=== PATIENT | male | born 2000 | race Caucasian/White ===

== ENCOUNTER 2021-06-09 14:00 | Emergency (ER) | payer OTHER, SELFPAY ==
[2021-06-09 14:08] VITALS: BP 141/92; PULSE 100; RESP 18; TEMP 36.9; O2SAT 98; BMI 34.2
--- NOTE | 2021-06-09 14:46 | ED.GENADULT ---
HPI - General Adult General Chief complaint: Upper Respiratory Symptoms Stated complaint: flu like symptoms Time Seen by Provider: 06/09/21 14:45 Source: patient Limitations: no limitations History of Present Illness HPI narrative: Patient presents to the ER with congestion slight sore throat. Patient states he is allergic to cats and has cats in his home. Patient denies any recent COVID-19 exposure and has not been vaccinated for COVID-19. 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 Patient has experienced some post tussis nausea vomiting after coughing. Patient denies tobacco history does admit to smoking marijuana. Symptoms mild to moderate. No history of COVID-19 in the past. Patient denies any recent travel history. Related Data Previous Rx's Medication Instructions Recorded ondansetron HCl 4 mg tablet 4 mg PO Q8H PRN #10 tab 06/09/21 (Zofran) Allergies Allergy/AdvReac Type Severity Reaction Status Date / Time No Known Allergies Allergy Unverified 05/28/20 16:50 [No Known Allergies*] Review of Systems Constitutional: Constitutional: Denies chills, Denies fatigue, Denies fever(s) and Denies headache(s) ENT: Denies headache(s), Reports nasal congestion, Reports nasal discharge and Denies neck pain Cardiovascular: Cardiovascular: Denies chest pain and Denies dyspnea Respiratory: Respiratory: Reports chest congestion, Reports cough and Denies dyspnea Gastrointestinal: Gastrointestinal: Denies diarrhea, Denies nausea and Denies vomiting Musculoskeletal: Musculoskeletal: Denies neck pain Neurologic: Denies headache(s) Endocrine: Endocrine: Denies fatigue PMFSH Past Medical History Attestation statement: The following information was validated with the patient. Social History Social History Advance Directives: No Advance Directives Information Provided: No Physical Exam Vital Signs: Vital Signs: Last Vital Signs Temp 98.4 F 06/09/21 14:08 Pulse 100 06/09/21 14:08 Resp 18 06/09/21 14:08 BP 141/92 H 06/09/21 14:08 Pulse Ox 98 06/09/21 14:08 Body Mass Index 34.2 vital signs have been reviewed as normal and appeared to be correct. Blood pressure normal. Heart rate normal. Respiration rate normal. Temperature normal. Oxygen saturation normal. Appearance: Alert. Oriented X3. No acute distress. Head: Normal external exam. Normocephalic. Atraumatic. Eyes: PERRLA. EOMI. ENT: Pharynx normal. Uvula midline. Moist mucous membranes. No evidence peritonsillar abscess. slight nasal congestion noted. Neck: Soft full range of motion, no JVD CVS: Heart regular rate and rhythm no murmurs and rubs Respiratory: Breath sounds are clear to auscultation bilaterally. No accessory muscle use noted. Abdomen: Soft nontender no rebound or guarding positive bowel sounds Back: No CVA tenderness. Full range of motion noted. Skin: Skin warm and dry. Normal skin color. Normal skin turgor. No rashes/lesions/lacerations noted. Extremities: No lower extremity edema. Extremities exhibit normal range of motion. Extremities nontender. Neuro: Oriented X 3. No motor deficit. No sensory deficit. Reflexes normal. Course Course Course Narrative: Viral URI Seasonal allergies Animal allergies COVID-19 Pharyngitis COVID-19 swab obtained negative patient notified via phone at approximately 4:14 p.m. Patient also instructed to avoid marijuana use secondary to side effects of nausea vomiting. Medical Decision Making Lab Data Labs: Lab Results 06/09/21 Range/Units 14:49 COVID-19 (AMY) Negative (Negative) COVID-19 Clin Com See Note Discharge Plan Discharge Clinical Impression: Upper respiratory infection Qualifiers: URI type: unspecified viral URI Qualified Code(s): J06.9 - Acute upper respiratory infection, unspecified Patient Disposition: Home, Self-Care Instructions: Upper Respiratory Infection (ED) Additional Instructions: Webster diet increase fluids rest Will call you with COVID-19 results Prescriptions: New ondansetron HCl [Zofran] 4 mg tablet 4 mg PO Q8H PRN (Reason: nausea and vomiting) Qty: 10 RF: 0 Interventions: ED Discharge Assessment Last Done: 06/09/21 15:00 Discharge Date/Time: 06/09/21 15:01
[2021-06-09 15:09] LABS: COVID-19 Test Negative (Negative); IDNOW Serial# 9DD0AD1C
== END 2021-06-09 15:01 | disposition home or self-care (01) ==
PROVIDERS: Physician Assistant; Emergency Provider Emergency Medicine Emergency Medical Services
DX: J06.9 Acute upper respiratory infection, unspecified (principal); Z20.822 Contact with and (suspected) exposure to COVID-19; Z79.899 Other long term (current) drug therapy
CPT/HCPCS: 36415; 87635; 99283

== ENCOUNTER 2022-08-01 12:16 | Emergency (ER) | payer OTHER, SELFPAY ==
[2022-08-01 12:23] VITALS: BP 151/95; PULSE 89; RESP 16; TEMP 36.7; O2SAT 98; BMI 33.4
--- NOTE | 2022-08-01 12:29 | ED.PSYCH ---
HPI - Psych General Chief Complaint: Psychiatric Symptoms <DO Jonah Rangel Last Filed: 08/01/22 12:32> Stated Complaint: crisis <DO Jonah Rangel Last Filed: 08/01/22 12:32> Time Seen by Provider: 08/01/22 12:43 <DO Jonah Rangel Last Filed: 08/01/22 12:32> Source: patient <Tayler Pearson NP - Last Filed: 08/01/22 16:00> Mode of arrival: ambulatory <Tayler Pearson NP - Last Filed: 08/01/22 16:00> Limitations: no limitations <ODILON Scales Last Filed: 08/01/22 16:00> History of Present Illness HPI Narrative: 22-year-old male with a history of bipolar disorder not on medication for many years, not seeing therapist or psychiatrist here with complaints of mood swings and anger issues. No SI, HI, hallucinations, substance use. No physical complaints. Here looking to speak to crisis <ODILON Scales Last Filed: 08/01/22 16:00> Related Data Home Medications: Previous Rx's Medication Instructions Recorded ondansetron HCl 4 mg tablet 4 mg PO Q8H PRN nausea and 06/09/21 (Zofran) vomiting #10 tabs <DO Jonah Rangel Last Filed: 08/01/22 12:32> Allergies/Adverse Reactions: Allergies Allergy/AdvReac Type Severity Reaction Status Date / Time No Known Allergies Allergy Unverified 05/28/20 16:50 [No Known Allergies*] <DO Jonah Rangel Last Filed: 08/01/22 12:32> Review of Systems Review of Systems: Yes all other systems are reviewed and are negative <ODILON Scales Last Filed: 08/01/22 16:00> Constitutional: Constitutional: Reports no additional constitutional complaints, Denies body ache(s), Denies chills, Denies fever(s), Denies headache(s) and Denies weakness <ODILON Scales Last Filed: 08/01/22 16:00> Eyes: Eyes: Reports no additional eye complaints and Denies change in vision <Tayler Pearson NP - Last Filed: 08/01/22 16:00> ENT: Reports system reviewed and no additional complaints, except as documented, Denies dizziness, Denies headache(s), Denies nasal congestion, Denies nasal discharge and Denies neck pain <Tayler Pearsno NP - Last Filed: 08/01/22 16:00> Cardiovascular: Cardiovascular: Reports no additional cardiovascular complaints, Denies chest pain, Denies leg edema and Denies dyspnea <Tayler Pearson NP - Last Filed: 08/01/22 16:00> Respiratory: Respiratory: Reports no additional respiratory complaints, Denies cough and Denies dyspnea <Tayler Pearson NP - Last Filed: 08/01/22 16:00> Gastrointestinal: Gastrointestinal: Reports no additional gastrointestinal complaints, Denies abdominal pain, Denies diarrhea, Denies nausea and Denies vomiting <Tayler Pearson NP - Last Filed: 08/01/22 16:00> Genitourinary: Genitourinary: Denies urinary incontinence <Tayler Pearson NP - Last Filed: 08/01/22 16:00> Musculoskeletal: Musculoskeletal: Reports no additional musculoskeletal complaints, Denies back pain, Denies arthralgias, Denies joint swelling, Denies neck pain, Denies numbness and Denies tingling <Tayler Pearson NP - Last Filed: 08/01/22 16:00> Integumentary/Breasts: Skin/Breast: Reports system reviewed and no additional complaints, except as docu and Denies rash <Tayler Pearson NP - Last Filed: 08/01/22 16:00> Neurologic: Reports system reviewed and no additional complaints, except as documented, Denies Abnormal speech present, Denies dizziness, Denies headache(s), Denies numbness, Denies tingling and Denies weakness <Tayler Pearson NP - Last Filed: 08/01/22 16:00> Psychiatric: Psychiatric: Reports anxiety, Denies depression, Reports mood swings, Denies visual hallucinations, Denies hallucinations, Denies tactile hallucinations, Denies homicidal ideation and Denies suicidal ideation <Tayler Pearson NP - Last Filed: 08/01/22 16:00> [facility] Past Medical History Attestation statement: The following information was validated with the patient. <Tayler Pearson NP - Last Filed: 08/01/22 16:00> Source: old records reviewed and nursing notes reviewed <Tayler Pearson NP - Last Filed: 08/01/22 16:00> Social History Social History: Social History Alcohol intake: unknown Smoked in Last 30 Days: No Use of substances other than those prescribed or required for medical reasons: Unknown Advance Directives: No Advance Directives Information Provided: No <Kavin Santana DO - Last Filed: 08/01/22 12:32> Physical Exam Vital Signs: Vital Signs: Last Vital Signs Temp 98.1 F 08/01/22 12:23 Pulse 89 08/01/22 12:23 Resp 16 08/01/22 14:00 BP 151/95 H 08/01/22 12:23 Pulse Ox 98 08/01/22 12:23 O2 Del Method 08/01/22 12:23 BMI result Body Mass Index 33.4 <Kavin Santana DO - Last Filed: 08/01/22 12:32> Vital Signs: Last Vital Signs Temp 98.1 F 08/01/22 12:23 Pulse 89 08/01/22 12:23 Resp 16 08/01/22 14:00 BP 151/95 H 08/01/22 12:23 Pulse Ox 98 08/01/22 12:23 O2 Del Method 08/01/22 12:23 BMI result Body Mass Index 33.4 <Tayler Pearson NP - Last Filed: 08/01/22 16:00> Const: General: cooperative, healthy appearing, comfortable and no acute distress <Tayler Pearson NP - Last Filed: 08/01/22 16:00> Orientation/consciousness: patient oriented x3 <Tayler Pearson NP - Last Filed: 08/01/22 16:00> Limitations: no limitations <Tayler Pearson NP - Last Filed: 08/01/22 16:00> HEENT: Head: Yes normal to inspection <Tayler Pearson NP - Last Filed: 08/01/22 16:00> Ears: hearing grossly normal bilaterally <Tayler Pearson NP - Last Filed: 08/01/22 16:00> General nose exam: Normal external nose present <Tayler Pearson NP - Last Filed: 08/01/22 16:00> Face and sinus: Yes normal facial exam <Tayler Pearson NP - Last Filed: 08/01/22 16:00> Mouth: Normal oral and palatal mucosa present <Tayler Pearson NP - Last Filed: 08/01/22 16:00> Throat: Yes posterior oropharynx normal <Tayler Pearson NP - Last Filed: 08/01/22 16:00> Eyes: General: appearance normal, both eyes and all related structures <Tayler Pearson NP - Last Filed: 08/01/22 16:00> Pupils: Equal, round and reactive pupils present <Tayler Pearson NP - Last Filed: 08/01/22 16:00> Neck: Neck: Yes normal visual inspection <Tayler Pearson NP - Last Filed: 08/01/22 16:00> Chest: Chest palpation & inspection: normal inspection of the chest <Tayler Pearson NP - Last Filed: 08/01/22 16:00> Resp: Effort & Inspection: normal respiratory effort <Tayler Pearson NP - Last Filed: 08/01/22 16:00> Auscultation: clear to auscultation bilaterally <Tayler Pearson NP - Last Filed: 08/01/22 16:00> Cardio: Rate: regular rate <Tayler Pearson NP - Last Filed: 08/01/22 16:00> Rhythm: regular rhythm <Tayler Pearson NP - Last Filed: 08/01/22 16:00> Peripheral pulses: Peripheral pulses 2+ throughout <Tayler Pearson NP - Last Filed: 08/01/22 16:00> GI: Inspection: Yes normal to inspection <Tayler Pearson NP - Last Filed: 08/01/22 16:00> Palpation (GI): Soft to palpation and nontender <Tayler Pearson NP - Last Filed: 08/01/22 16:00> Auscultation: normal bowel sounds <Tayler Pearsno NP - Last Filed: 08/01/22 16:00> Back/Spine/Pelvis: Thoracic/Lumbar Spine: thoracic and lumbar spine normal to inspection <Tayler Pearson NP - Last Filed: 08/01/22 16:00> Skin: General skin exam: no rashes or lesions noted <Tayler Pearson NP - Last Filed: 08/01/22 16:00> Neuro: General: patient oriented x3, no focal motor deficits and normal sensation to monofilament <Tayler Pearson NP - Last Filed: 08/01/22 16:00> Cranial nerves: Yes CN's II-XII intact bilaterally and Yes Equal, round and reactive pupils present <Tayler Pearson NP - Last Filed: 08/01/22 16:00> Cognition (Neuro): normal cognition <Tayler Pearson NP - Last Filed: 08/01/22 16:00> Speech: No Abnormal speech present <Tayler Pearson NP - Last Filed: 08/01/22 16:00> Gait exam (Neuro): Normal gait present <Tayler Pearson NP - Last Filed: 08/01/22 16:00> Motor exam (neuro): 5/5 motor strength present throughout <Tayler Pearson NP - Last Filed: 08/01/22 16:00> Extrem: General: Yes normal to inspection <Tayler Pearson NP - Last Filed: 08/01/22 16:00> Course Course Course Narrative: 22 year old male with concerns and wanted to talk to someone. He denies SI or HI. NO falls injuries cough. He states he used to have a therapist but hasn't seen them for a long time. he is currently estranged from his mom. No falls injuries I will check labs he would like to talk to crisis. I will have him evaluated. in the back. Patient seen in triage labs sent. Patient got a rapid medical screening exam <Kavin Santana DO - Last Filed: 08/01/22 12:32> MDM - Psych MDM Narrative Medical decision making narrative: 22-year-old male here with complaints of mood swings and feeling angry requesting to speak to crisis. No concern for acute ingestion or trauma. Will need labs, drug screen, COVID screen. Once medically cleared will need crisis evaluation <Tayler Pearson NP - Last Filed: 08/01/22 16:00> Medical Records Attestation: I reviewed the patient's medical records. <Tayler Pearson NP - Last Filed: 08/01/22 16:00> Lab Data Attestation: I reviewed the patient's lab results. <Tayler Pearson NP - Last Filed: 08/01/22 16:00> Result diagrams: : 08/01/22 13:14 08/01/22 13:14 <Kavin Santana DO - Last Filed: 08/01/22 12:32> Labs: Lab Results 08/01/22 08/01/22 08/01/22 Range/Units 13:01 13:14 13:14 WBC 8.3 (4.8-10.8) X10*3/uL RBC 4.91 (4.60-5.80) X10*6/uL Hgb 14.6 (14.0-18.0) g/dl Hct 42.6 (42.0-52.0) % MCV 86.8 (80.0-98.0) fL MCH 29.7 (27.0-33.0) pg MCHC 34.3 (31.0-36.0) g/dl RDW 11.2 (11.0-16.0) % Plt Count 256 (160-400) X10*3/uL MPV 9.1 L (9.4-12.4) fL Immature Gran % (Auto) 0.1 (0.0-0.4) % Neut % (Auto) 59.4 (45-73) % Lymph % (Auto) 26.8 (20-40) % [place] % (Auto) 7.9 (2-11) % Eos % (Auto) 4.8 H (0-4) % Baso % (Auto) 1.0 (0-2) % Lymph # (Auto) 2.2 (1.2-4.9) X10*3/uL [place] # (Auto) 0.7 (0.1-1.2) X10*3/uL Eos # (Auto) 0.4 (0.0-0.4) X10*3/uL Baso # (Auto) 0.1 (0.0-0.2) X10*3/uL Abs Immat Gran (auto) 0.01 (0.00-0.03) X10*3/uL Absolute Neuts (auto) 4.9 (2.0-8.3) x10*3/uL Absolute Nucleated RBC 0.000 (0.0-0.012) X10*3/uL Nucleated RBC % (auto) 0.0 (0.0-0.2) /100WBC Sodium 141 (135-145) mmol/L Potassium 4.4 (3.3-5.1) mmol/L Chloride 107 (96-108) mmol/L Carbon Dioxide 27 (22-29) mmol/L Anion Gap 11 L (12-20) BUN 12 (9-16) mg/dL Creatinine 0.82 (0.5-1.4) mg/dL Estim Creat Clear Calc 161.8 Estimated GFR > 60 Random Glucose 103 (60-115) mg/dL Calcium 9.6 (8.4-10.2) mg/dL Total Bilirubin 0.7 (0.0-1.0) mg/dL Direct Bilirubin 0.3 (0.0-0.5) mg/dL AST 15 (5-37) U/L ALT 14 (0-40) U/L Alkaline Phosphatase 80 (39-117) U/L Total Protein 7.4 (6.5-8.0) g/dL Albumin 4.6 (3.5-5.0) g/dL Urine Opiates Screen (Not Detect) Urine Fentanyl Screen (Not Detect) Ur Barbiturates Screen (Not Detect) Ur Phencyclidine Scrn (Not Detect) Ur Amphetamines Screen (Not Detect) U Benzodiazepines Scrn (Not Detect) Urine Cocaine Screen (Not Detect) U Marijuana (THC) Screen (Not Detect) Ethyl Alcohol < 10 mg/dL COVID-19 (AMY) Negative (Negative) COVID-19 Clin Com See Note 08/01/22 Range/Units 13:26 WBC (4.8-10.8) X10*3/uL RBC (4.60-5.80) X10*6/uL Hgb (14.0-18.0) g/dl Hct (42.0-52.0) % MCV (80.0-98.0) fL MCH (27.0-33.0) pg MCHC (31.0-36.0) g/dl RDW (11.0-16.0) % Plt Count (160-400) X10*3/uL MPV (9.4-12.4) fL Immature Gran % (Auto) (0.0-0.4) % Neut % (Auto) (45-73) % Lymph % (Auto) (20-40) % [place] % (Auto) (2-11) % Eos % (Auto) (0-4) % Baso % (Auto) (0-2) % Lymph # (Auto) (1.2-4.9) X10*3/uL [place] # (Auto) (0.1-1.2) X10*3/uL Eos # (Auto) (0.0-0.4) X10*3/uL Baso # (Auto) (0.0-0.2) X10*3/uL Abs Immat Gran (auto) (0.00-0.03) X10*3/uL Absolute Neuts (auto) (2.0-8.3) x10*3/uL Absolute Nucleated RBC (0.0-0.012) X10*3/uL Nucleated RBC % (auto) (0.0-0.2) /100WBC Sodium (135-145) mmol/L Potassium (3.3-5.1) mmol/L Chloride (96-108) mmol/L Carbon Dioxide (22-29) mmol/L Anion Gap (12-20) BUN (9-16) mg/dL Creatinine (0.5-1.4) mg/dL Estim Creat Clear Calc Estimated GFR Random Glucose (60-115) mg/dL Calcium (8.4-10.2) mg/dL Total Bilirubin (0.0-1.0) mg/dL Direct Bilirubin (0.0-0.5) mg/dL AST (5-37) U/L ALT (0-40) U/L Alkaline Phosphatase (39-117) U/L Total Protein (6.5-8.0) g/dL Albumin (3.5-5.0) g/dL Urine Opiates Screen Not Detected (Not Detect) Urine Fentanyl Screen Not Detected (Not Detect) Ur Barbiturates Screen Not Detected (Not Detect) Ur Phencyclidine Scrn Not Detected (Not Detect) Ur Amphetamines Screen Not Detected (Not Detect) U Benzodiazepines Scrn Not Detected (Not Detect) Urine Cocaine Screen Not Detected (Not Detect) U Marijuana (THC) Screen POSITIVE H (Not Detect) Ethyl Alcohol mg/dL COVID-19 (AMY) (Negative) COVID-19 Clin Com <Kavin Santana, - Last Filed: 08/01/22 12:32> Lab Results 08/01/22 08/01/22 08/01/22 Range/Units 13:01 13:14 13:14 WBC 8.3 (4.8-10.8) X10*3/uL RBC 4.91 (4.60-5.80) X10*6/uL Hgb 14.6 (14.0-18.0) g/dl Hct 42.6 (42.0-52.0) % MCV 86.8 (80.0-98.0) fL MCH 29.7 (27.0-33.0) pg MCHC 34.3 (31.0-36.0) g/dl RDW 11.2 (11.0-16.0) % Plt Count 256 (160-400) X10*3/uL MPV 9.1 L (9.4-12.4) fL Immature Gran % (Auto) 0.1 (0.0-0.4) % Neut % (Auto) 59.4 (45-73) % Lymph % (Auto) 26.8 (20-40) % [place] % (Auto) 7.9 (2-11) % Eos % (Auto) 4.8 H (0-4) % Baso % (Auto) 1.0 (0-2) % Lymph # (Auto) 2.2 (1.2-4.9) X10*3/uL [place] # (Auto) 0.7 (0.1-1.2) X10*3/uL Eos # (Auto) 0.4 (0.0-0.4) X10*3/uL Baso # (Auto) 0.1 (0.0-0.2) X10*3/uL Abs Immat Gran (auto) 0.01 (0.00-0.03) X10*3/uL Absolute Neuts (auto) 4.9 (2.0-8.3) x10*3/uL Absolute Nucleated RBC 0.000 (0.0-0.012) X10*3/uL Nucleated RBC % (auto) 0.0 (0.0-0.2) /100WBC Sodium 141 (135-145) mmol/L Potassium 4.4 (3.3-5.1) mmol/L Chloride 107 (96-108) mmol/L Carbon Dioxide 27 (22-29) mmol/L Anion Gap 11 L (12-20) BUN 12 (9-16) mg/dL Creatinine 0.82 (0.5-1.4) mg/dL Estim Creat Clear Calc 161.8 Estimated GFR > 60 Random Glucose 103 (60-115) mg/dL Calcium 9.6 (8.4-10.2) mg/dL Total Bilirubin 0.7 (0.0-1.0) mg/dL Direct Bilirubin 0.3 (0.0-0.5) mg/dL AST 15 (5-37) U/L ALT 14 (0-40) U/L Alkaline Phosphatase 80 (39-117) U/L Total Protein 7.4 (6.5-8.0) g/dL Albumin 4.6 (3.5-5.0) g/dL Urine Opiates Screen (Not Detect) Urine Fentanyl Screen (Not Detect) Ur Barbiturates Screen (Not Detect) Ur Phencyclidine Scrn (Not Detect) Ur Amphetamines Screen (Not Detect) U Benzodiazepines Scrn (Not Detect) Urine Cocaine Screen (Not Detect) U Marijuana (THC) Screen (Not Detect) Ethyl Alcohol < 10 mg/dL COVID-19 (AMY) Negative (Negative) COVID-19 Clin Com See Note 08/01/22 Range/Units 13:26 WBC (4.8-10.8) X10*3/uL RBC (4.60-5.80) X10*6/uL Hgb (14.0-18.0) g/dl Hct (42.0-52.0) % MCV (80.0-98.0) fL MCH (27.0-33.0) pg MCHC (31.0-36.0) g/dl RDW (11.0-16.0) % Plt Count (160-400) X10*3/uL MPV (9.4-12.4) fL Immature Gran % (Auto) (0.0-0.4) % Neut % (Auto) (45-73) % Lymph % (Auto) (20-40) % [place] % (Auto) (2-11) % Eos % (Auto) (0-4) % Baso % (Auto) (0-2) % Lymph # (Auto) (1.2-4.9) X10*3/uL [place] # (Auto) (0.1-1.2) X10*3/uL Eos # (Auto) (0.0-0.4) X10*3/uL Baso # (Auto) (0.0-0.2) X10*3/uL Abs Immat Gran (auto) (0.00-0.03) X10*3/uL Absolute Neuts (auto) (2.0-8.3) x10*3/uL Absolute Nucleated RBC (0.0-0.012) X10*3/uL Nucleated RBC % (auto) (0.0-0.2) /100WBC Sodium (135-145) mmol/L Potassium (3.3-5.1) mmol/L Chloride (96-108) mmol/L Carbon Dioxide (22-29) mmol/L Anion Gap (12-20) BUN (9-16) mg/dL Creatinine (0.5-1.4) mg/dL Estim Creat Clear Calc Estimated GFR Random Glucose (60-115) mg/dL Calcium (8.4-10.2) mg/dL Total Bilirubin (0.0-1.0) mg/dL Direct Bilirubin (0.0-0.5) mg/dL AST (5-37) U/L ALT (0-40) U/L Alkaline Phosphatase (39-117) U/L Total Protein (6.5-8.0) g/dL Albumin (3.5-5.0) g/dL Urine Opiates Screen Not Detected (Not Detect) Urine Fentanyl Screen Not Detected (Not Detect) Ur Barbiturates Screen Not Detected (Not Detect) Ur Phencyclidine Scrn Not Detected (Not Detect) Ur Amphetamines Screen Not Detected (Not Detect) U Benzodiazepines Scrn Not Detected (Not Detect) Urine Cocaine Screen Not Detected (Not Detect) U Marijuana (THC) Screen POSITIVE H (Not Detect) Ethyl Alcohol mg/dL COVID-19 (AMY) (Negative) COVID-19 Clin Com <Tayler Pearson NP - Last Filed: 08/01/22 16:00> Discharge Plan Discharge Clinical Impression: Mood swing <Kavin Santana DO - Last Filed: 08/01/22 12:32> Patient Disposition: Home, Self-Care <Kavin Santana DO - Last Filed: 08/01/22 12:32> Instructions: Mood Disorders (ED) <Kavin Santana DO - Last Filed: 08/01/22 12:32> Additional Instructions: You came to the emergency room looking for resources to set herself up with therapy and a psychiatrist that you wanted to leave before we are able to do this for you. You were given outpatient information to do this on her own. Please come back if you feel like your unsafe at home. <Kavin Santana DO - Last Filed: 08/01/22 12:32> Prescriptions: No Action ondansetron HCl [Zofran] 4 mg tablet 4 mg PO Q8H PRN (Reason: nausea and vomiting) Qty: 10 0RF <Kavin Santana DO - Last Filed: 08/01/22 12:32> Interventions: [place]-Suicide Risk Severity Scale Last Done: 08/01/22 12:47 ED Discharge Assessment Last Done: 08/01/22 15:46 <Kavni Santana DO - Last Filed: 08/01/22 12:32> Discharge Date/Time: 08/01/22 15:53 <DO Jonah Rangel Last Filed: 08/01/22 12:32>
[2022-08-01 13:21] LABS: MANUAL DIFF FLAG NO
[2022-08-01 13:23] LABS: Basophils Absolute Auto 0.1 X10*3/uL (0.0-0.2); Eosinophils Absolute Auto 0.4 X10*3/uL (0.0-0.4); Eosinophils Percent Auto 4.8 % (0-4); Hematocrit 42.6 % (42.0-52.0); Hemoglobin 14.6 g/dl (14.0-18.0); Imm Gran Abs Auto 0.01 X10*3/uL (0.00-0.03); Imm Gran Pct Auto 0.1 % (0.0-0.4); Lymphocytes Absolute Auto 2.2 X10*3/uL (1.2-4.9); Lymphocytes Percent Auto 26.8 % (20-40); Mean Corpuscular HGB Conc 34.3 g/dl (31.0-36.0); Mean Corpuscular Hemoglobin 29.7 pg (27.0-33.0); Mean Corpuscular Volume 86.8 fL (80.0-98.0); Mean Platelet Volume 9.1 fL (9.4-12.4); Monocytes Absolute Auto 0.7 X10*3/uL (0.1-1.2); Monocytes Percent Auto 7.9 % (2-11); Neutrophils Absolute Auto 4.9 x10*3/uL (2.0-8.3); Neutrophils Percent Auto 59.4 % (45-73); Platelet Count 256 X10*3/uL (160-400); Red Blood Count 4.91 X10*6/uL (4.60-5.80); Red Cell Distribution Width 11.2 % (11.0-16.0); White Blood Count 8.3 X10*3/uL (4.8-10.8)
[2022-08-01 13:31] LABS: COVID-19 Test Negative (Negative); IDNOW Serial# BCCEAD1C
[2022-08-01 13:46] LABS: Amphetamine Screen Urine Not Detected (Not Detect); Barbiturates, Urine Not Detected (Not Detect); Benzodiazepines Screen Urine Not Detected (Not Detect); Cannabinoid Screen Urine POSITIVE (Not Detect); Cocaine Screen Urine Not Detected (Not Detect); Fentanyl, urine Not Detected (Not Detect); Opiate Screen Urine Not Detected (Not Detect); Phencyclidine Screen Urine Not Detected (Not Detect)
[2022-08-01 13:48] LABS: Alanine Aminotransferase 14 U/L (0-40); Albumin Level 4.6 g/dL (3.5-5.0); Alkaline Phosphatase 80 U/L (39-117); Anion Gap 11 (12-20); Aspartate Amino Transferase 15 U/L (5-37); Bilirubin Direct 0.3 mg/dL (0.0-0.5); Bilirubin Total 0.7 mg/dL (0.0-1.0); Blood Urea Nitrogen 12 mg/dL (9-16); Calcium 9.6 mg/dL (8.4-10.2); Carbon Dioxide 27 mmol/L (22-29); Chloride 107 mmol/L (96-108); Creatinine Clr Calc Pharmacy 161.8; Estimated Glomerular Filt Rate > 60; Ethanol < 10 mg/dL; Glucose Random 103 mg/dL (60-115); Potassium 4.4 mmol/L (3.3-5.1); Sodium 141 mmol/L (135-145); Total Protein 7.4 g/dL (6.5-8.0)
[2022-08-01 14:00] VITALS: RESP 16
== END 2022-08-01 15:53 | disposition home or self-care (01) ==
PROVIDERS: Nurse Practitioner Family; Student in an Organized Health Care Education/Training Program; Emergency Provider Emergency Medicine
DX: F31.9 Bipolar disorder, unspecified (principal); F41.9 Anxiety disorder, unspecified; Z72.89 Other problems related to lifestyle; Z63.8 Other specified problems related to primary support group; Z20.822 Contact with and (suspected) exposure to COVID-19; F12.90 Cannabis use, unspecified, uncomplicated
CPT/HCPCS: 36415; 80048; 80076; 80307; 82077; 85025; 87635; 99283; 99284

== ENCOUNTER 2024-09-07 08:35 | Inpatient (IN) | payer OTHER, SELFPAY ==
[2024-09-07] VITALS (9 sets, daily range): BP systolic 110–153; BP diastolic 64–90; PULSE 87–140; RESP 10–24; TEMP 36.6–37.1; O2SAT 96–98; BMI 25.8
--- NOTE | 2024-09-07 | ECG_ITS ---
Test Reason : TACHY Blood Pressure : / mmHG Vent. Rate : 121 BPM Atrial Rate : 121 BPM P-R Int : 178 ms QRS Dur : 094 ms QT Int : 318 ms P-R-T Axes : 067 036 045 degrees QTc Int : 451 ms Sinus tachycardia Nonspecific T wave abnormality Abnormal ECG No previous ECGs available Referred By: Generic ED Physician Electronically Signed By:Ok Garza
--- NOTE | 2024-09-07 09:05 | ED_ITS ---
HPI - General Adult General Chief complaint: Overdose Stated complaint: TOOK MORE THAN 2 ADDERALL PILLS PER EMS Time Seen by Provider: 09/07/24 09:02 Source: patient and EMS Mode of arrival: EMS Limitations: no limitations History of Present Illness ED Provider: Joelle Shepard PA-C HPI narrative: Patient is a 24 year old assigned male at with no reported medical history presenting to the emergency department today after an intentional overdose. Patient states that he attempted to kill himself by overdosing on medication. Patient states that he took anywhere from 600 - 800mg of Adderall and 800-900mg of Trazadone. Patient states that he initially had some chest pressure but that has largely resolved. Patient states that he is nauseous and has vomited. Patient denies any dizziness, lightheadedness, abdominal pain, fever, chills, blurry vision, double vision, loss of vision, difficulty breathing, shortness of breath, back pain, night sweats, pain with urination, increased urinary frequency, increased urinary urgency, blood in his urine or stool, syncope or a near syncopal episode, recent trauma or falls, bowel incontinence, bladder incontinence, or any other complaints at this time. Relieving factors: none Exacerbating factors: none Associated symptoms: chest pain and nausea/vomiting Treatments prior to arrival: none Related Data Previous Rx's ?Medication ?Instructions ?Recorded ondansetron HCl 4 mg tablet 4 mg PO Q8H PRN nausea and 06/09/21 (Zofran) vomiting #10 tabs Allergies Allergy/AdvReac Type Severity Reaction Status Date / Time No Known Allergies Allergy Verified 09/07/24 08:50 [No Known Allergies*] Review of Systems 2 Constitutional: Constitutional: Reports no additional constitutional complaints, Denies chills, Denies fever(s) and Denies night sweats Eyes: Eyes: Reports no additional eye complaints, Denies blurry vision, Denies change in vision, Denies diplopia, Denies eye discharge, Denies loss of vision and Denies eye pain ENT: Denies dizziness Cardiovascular: Cardiovascular: Reports no additional cardiovascular complaints, Reports chest pain (now resolved), Denies lightheadedness, Denies Loss of Consciousness and Denies dyspnea Respiratory: Respiratory: Reports no additional respiratory complaints and Denies dyspnea Gastrointestinal: Gastrointestinal: Reports no additional gastrointestinal complaints, Denies abdominal pain, Denies melena, Denies hematochezia, Denies change in bowel habits, Denies change in stool character, Reports nausea and Reports vomiting Genitourinary: Genitourinary: Reports no additional male genitourinary complaints, Denies hematuria, Denies oliguria, Denies difficulty urinating, Denies dysuria, Denies urinary frequency, Denies urinary hesitancy, Denies urinary incontinence and Denies urinary urgency Musculoskeletal: Musculoskeletal: Reports no additional musculoskeletal complaints, Denies numbness and Denies tingling Neurologic: Denies dizziness, Denies loss of vision, Denies numbness and Denies tingling Psychiatric: Psychiatric: Denies homicidal ideation and Reports suicidal ideation Endocrine: Endocrine: Reports no additional endocrine complaints Hematologic/Lymphatic: Hematologic/Lymphatic: Reports no additional hematologic/lymphatic complaints Allergic/Immunologic: Allergic/Immunologic: Reports no additional allergic/immunologic complaints PMFSH Past Medical History Attestation statement: The following information was validated with the patient. Source: old records reviewed and nursing notes reviewed Social History Social History Alcohol intake: unknown Advance Directives: No Do you have a plan to hurt others: No Plan Physical Exam ED Vital Signs: Vital Signs - 24 hr 09/07/24 08:48 09/07/24 09:17 09/07/24 10:12 Temperature 98.0 F 97.9 F Pulse Rate 132 H 109 H 87 Respiratory Rate 12 24 H 12 Blood Pressure 153/82 H 153/82 H 133/85 Pulse Oximetry 97 98 98 Oxygen Delivery Method Room Air Room Air Room Air 09/07/24 12:06 09/07/24 13:48 09/07/24 16:00 Temperature Pulse Rate 90 96 114 H Respiratory Rate 22 H 18 21 H Blood Pressure 124/69 110/64 Pulse Oximetry 96 96 Oxygen Delivery Method Room Air Room Air 09/07/24 18:16 Temperature Pulse Rate 105 H Respiratory Rate 10 L Blood Pressure 135/86 Pulse Oximetry 97 Oxygen Delivery Method Room Air BMI result Body Mass Index 25.8 Const General: cooperative, no acute distress, alert and awake Nutritional Appearance: well nourished Orientation/consciousness: patient oriented x3 Limitations: no limitations HENMT Head: Yes normal to inspection and Yes atraumatic Ears: hearing grossly normal bilaterally and external ears normal General nose exam: Normal external nose present, no nasal discharge noted and no epistaxis Face and sinus: Yes normal facial exam, No abrasion and No laceration Mouth: Normal oral and palatal mucosa present, no drooling and no muffled voice Eyes General: appearance normal, both eyes and all related structures Periorbital: periorbital findings normal Eyelids: Yes eyelids normal Conjunctivae: conjunctivae normal Pupils: Equal, round and reactive pupils present EOM: EOMs intact bilaterally Neck Neck: Yes normal visual inspection, Yes full ROM and Yes no lymphadenopathy Chest Chest palpation & inspection: normal inspection of the chest Resp Effort & Inspection: normal respiratory effort and able to speak in complete sentences Cardio Rate: bradycardic Rhythm: regular rhythm GI Inspection: Yes normal to inspection Neuro General: patient oriented x3 and moves all extremities Cranial nerves: Yes Equal, round and reactive pupils present Cognition (Neuro): normal cognition Extrem General: Yes normal to inspection, Yes full ROM and Yes capillary refill normal Psych Appearance: grossly normal Mental Status: mental status grossly normal Affect: normal affect Attitude: cooperative Thought process: Normal thought process present Thought content: Normal thought content present Insight: Good insight present (Psych) Course Reevaluation(s) Reevaluation #1: RN spoke to poison control who recommended: Potassium >4 Magnesium >2 NO Zofran EKG Q3H x2 Symptom management with PRN Benzos Medications Administered Generic Name Dose Route Start Last Admin Trade Name Freq PRN Reason Stop Dose Admin Potassium Chloride 10 meq in 100 mls @ 100 mls/hr 09/07/24 17:45 09/07/24 17:52 Potassium Chloride/H20 IV 09/07/24 19:44 100 mls/hr Q1H SUDHA Administration Discontinued Medications Generic Name Dose Route Start Last Admin Trade Name Freq PRN Reason Stop Dose Admin Potassium Chloride 10 meq in 100 mls @ 100 mls/hr 09/07/24 11:00 09/07/24 16:33 Potassium Chloride/H20 IV 09/07/24 14:59 Infused Q1H SUDHA Infusion Magnesium Sulfate/Dextrose 1 gm in 100 mls @ 100 mls/hr 09/07/24 11:15 09/07/24 12:35 Magnesium Sulfate/D5w IV 09/07/24 12:14 Infused ONCE ONE Infusion Sodium Chloride 500 mls @ 500 mls/hr 09/07/24 17:45 09/07/24 17:52 Ns IV 09/07/24 18:44 500 mls/hr .Q1H SUDHA Administration Lorazepam 1 mg 09/07/24 14:05 09/07/24 14:14 Lorazepam 2 Mg/Ml Vial IVPUSH 09/07/24 14:06 1 mg ONCE ONE Administration Lorazepam 2 mg 09/07/24 17:45 09/07/24 17:51 Lorazepam 2 Mg/Ml Vial IVPUSH 09/07/24 17:46 2 mg ONCE ONE Administration Metoclopramide HCl 10 mg 09/07/24 11:08 09/07/24 11:20 Metoclopramide Hcl 10 Mg/2 Ml Vial IVPUSH 09/07/24 11:09 10 mg ONCE ONE Administration Ondansetron HCl 4 mg 09/07/24 10:24 09/07/24 10:33 Ondansetron Hcl 4 Mg/2 Ml Vial IVPUSH 09/07/24 10:25 4 mg ONCE ONE Administration Potassium Chloride 40 meq 09/07/24 17:45 09/07/24 17:51 Potassium Chloride Packet 20 Meq Packet PO 09/07/24 17:46 40 meq ONCE ONE Administration Medical Decision Making Medical Decision Making [facility] Narrative: Patient is a 24 year old assigned male at with no reported medical history presenting to the emergency department today after an intentional overdose, nausea, and vomiting. Patient's physical exam was as noted in the physical exam portion of this note. Patient's blood work was unremarkable. Patient's urine showed no acute process. Patient's numerous EKGs ranged from NSR to sinus tachycardia. Nursing spoke to poison control as noted in the course portion of this note. They recommended the patient be given potassium and magnesium for >4 and >2 respectively as well as avoiding Zofran and Q3H EKGs for 6 hours. Patient received 40meq of K+ which brought his level to 3.7 as well as a gram of mag with his original level being 1.9. Patient given an additional 20meq of IV potassium and 20meq PO potassium. Patient medically cleared at this time to be evaluated by the CARE team. I explained my physical exam findings as well as all test results to the patient. I answered all questions asked by the patient. Patient's disposition pending CARE team evaluation. Differential Diagnosis Differential Diagnoses: The differential diagnosis associated with the presentation includes Intentional overdose SI Admission/Observation Consideration of admission/observation: Escalation of care including admission/observation considered Patient's disposition will be determined after CARE team evaluation. Lab Data [facility] Lab Attestation statement: I reviewed the patient's lab results. My interpretation of these results are in the [facility] Rationale portion of this note. 09/07/24 09:12 09/07/24 17:08 Labs: Lab Results 09/07/24 09/07/24 09/07/24 Range/Units 09:12 13:30 13:52 WBC 8.1 (4.8-10.8) X10*3/uL RBC 4.44 L (4.60-5.80) X10*6/uL Hgb 13.5 L (14.0-18.0) g/dl Hct 38.5 L (42.0-52.0) % MCV 86.7 (80.0-98.0) fL MCH 30.4 (27.0-33.0) pg MCHC 35.1 (31.0-36.0) g/dl RDW 11.6 (11.0-16.0) % Plt Count 232 (160-400) X10*3/uL MPV 9.2 L (9.4-12.4) fL Immature Gran % (Auto) 0.2 (0.0-0.4) % Neut % (Auto) 69.4 (45-73) % Lymph % (Auto) 22.8 (20-40) % Mill[place] % (Auto) 6.4 (2-11) % Eos % (Auto) 0.6 (0-4) % Baso % (Auto) 0.6 (0-2) % Lymph # (Auto) 1.9 (1.2-4.9) X10*3/uL Millard # (Auto) 0.5 (0.1-1.2) X10*3/uL Eos # (Auto) 0.1 (0.0-0.4) X10*3/uL Baso # (Auto) 0.1 (0.0-0.2) X10*3/uL Abs Immat Gran (auto) 0.02 (0.00-0.03) X10*3/uL Absolute Neuts (auto) 5.6 (2.0-8.3) x10*3/uL Absolute Nucleated RBC 0.000 (0.0-0.012) X10*3/uL Nucleated RBC % (auto) 0.0 (0.0-0.2) /100WBC Sodium 146 H (135-145) mmol/L Potassium 3.2 L (3.3-5.1) mmol/L Chloride 111 H (96-108) mmol/L Carbon Dioxide 20 L (22-29) mmol/L Anion Gap 18 (12-20) BUN 10 (9-16) mg/dL Creatinine 1.14 (0.5-1.4) mg/dL Estim Creat Clear Calc 103.1 Estimated GFR > 60 Random Glucose 134 H (60-115) mg/dL Calcium 9.3 (8.4-10.2) mg/dL Magnesium 1.9 (1.6-2.6) mg/dL Total Bilirubin 1.4 H (0.0-1.0) mg/dL AST 31 (5-37) U/L ALT 14 (0-40) U/L Alkaline Phosphatase 72 (39-117) U/L Total Protein 7.3 (6.5-8.0) g/dL Albumin 4.5 (3.5-5.0) g/dL Urine Color Dark Yellow Urine Appearance Clear Urine pH 5.5 (5.0-9.0) Ur Specific [place] >= 1.030 H (1.005-1.025) Urine Protein 30 (1+) H (Neg-Trace) mg/dL Urine Glucose (UA) Negative (Negative) mg/dL Urine Ketones 40 (Negative) mg/dL Urine Blood Negative (Negative) Urine Nitrite Negative (Negative) Ur Leukocyte Esterase Negative (Negative) Urine RBC 0-2 (0-2) /HPF Urine WBC 0-5 (0-5) /HPF Ur Squamous Epith Cells 0-2 (0-2) /HPF Urine Bacteria None Seen (None Seen) Hyaline Casts 3-5 (0-2) /LPF Salicylates < 5.0 L (15-30) mg/dL Urine Opiates Screen Not Detected (Not Detect) Ur Buprenorphine Scrn Not Detected (Not Detect) ng/mL Ur Oxycodone Screen Not Detected (Not Detect) ng/mL Urine Methadone Screen Not Detected (Not Detect) ng/mL Urine Fentanyl Screen Not Detected (Not Detect) Acetaminophen < 3 (<30) mcg/mL Ur Barbiturates Screen Not Detected (Not Detect) Ur Phencyclidine Scrn Not Detected (Not Detect) Ur Amphetamines Screen POSITIVE H (Not Detect) U Benzodiazepines Scrn Not Detected (Not Detect) Urine Cocaine Screen Not Detected (Not Detect) U Marijuana (THC) Screen POSITIVE H (Not Detect) 09/07/24 Range/Units 17:08 WBC (4.8-10.8) X10*3/uL RBC (4.60-5.80) X10*6/uL Hgb (14.0-18.0) g/dl Hct (42.0-52.0) % MCV (80.0-98.0) fL MCH (27.0-33.0) pg MCHC (31.0-36.0) g/dl RDW (11.0-16.0) % Plt Count (160-400) X10*3/uL MPV (9.4-12.4) fL Immature Gran % (Auto) (0.0-0.4) % Neut % (Auto) (45-73) % Lymph % (Auto) (20-40) % Millard % (Auto) (2-11) % Eos % (Auto) (0-4) % Baso % (Auto) (0-2) % Lymph # (Auto) (1.2-4.9) X10*3/uL Millard # (Auto) (0.1-1.2) X10*3/uL Eos # (Auto) (0.0-0.4) X10*3/uL Baso # (Auto) (0.0-0.2) X10*3/uL Abs Immat Gran (auto) (0.00-0.03) X10*3/uL Absolute Neuts (auto) (2.0-8.3) x10*3/uL Absolute Nucleated RBC (0.0-0.012) X10*3/uL Nucleated RBC % (auto) (0.0-0.2) /100WBC Sodium 143 (135-145) mmol/L Potassium 3.7 (3.3-5.1) mmol/L Chloride 113 H (96-108) mmol/L Carbon Dioxide 23 (22-29) mmol/L Anion Gap 11 L (12-20) BUN 7 L (9-16) mg/dL Creatinine 0.98 (0.5-1.4) mg/dL Estim Creat Clear Calc 120.0 Estimated GFR > 60 Random Glucose 90 (60-115) mg/dL Calcium 9.1 (8.4-10.2) mg/dL Magnesium (1.6-2.6) mg/dL Total Bilirubin 1.2 H (0.0-1.0) mg/dL AST 31 (5-37) U/L ALT 16 (0-40) U/L Alkaline Phosphatase 68 (39-117) U/L Total Protein 6.9 (6.5-8.0) g/dL Albumin 4.3 (3.5-5.0) g/dL Urine Color Urine Appearance Urine pH (5.0-9.0) Ur Specific [place] (1.005-1.025) Urine Protein (Neg-Trace) mg/dL Urine Glucose (UA) (Negative) mg/dL Urine Ketones (Negative) mg/dL Urine Blood (Negative) Urine Nitrite (Negative) Ur Leukocyte Esterase (Negative) Urine RBC (0-2) /HPF Urine WBC (0-5) /HPF Ur Squamous Epith Cells (0-2) /HPF Urine Bacteria (None Seen) Hyaline Casts (0-2) /LPF Salicylates (15-30) mg/dL Urine Opiates Screen (Not Detect) Ur Buprenorphine Scrn (Not Detect) ng/mL Ur Oxycodone Screen (Not Detect) ng/mL Urine Methadone Screen (Not Detect) ng/mL Urine Fentanyl Screen (Not Detect) Acetaminophen (<30) mcg/mL Ur Barbiturates Screen (Not Detect) Ur Phencyclidine Scrn (Not Detect) Ur Amphetamines Screen (Not Detect) U Benzodiazepines Scrn (Not Detect) Urine Cocaine Screen (Not Detect) U Marijuana (THC) Screen (Not Detect) Independent Interpretation I performed an independent interpretation of an: EKG Interpretation: Vent. Rate: 121 BPM Atrial Rate: 121 BPM P-R Int: 178 ms QRS Dur: 094 ms QT Inc: 318 ms P-R-T Axes: 067 036 045 degrees QTc Int: 451 ms Sinus tachycardia Nonspecific T wave abnormality No previous ECGs available Referred By: Generic ED Physician Electronically Signed By:Ok Garza Dictated By: Ok Garza MD Signed By: Electronically signed by Ok Garza MD 09/07/24 1757 Vent. Rate: 085 BPM Atrial Rate: 085 BPM P-R Int: 212 ms QRS Dur: 096 ms QT Int: 370 ms P-R-T Axes: 808 339 184 degrees QTc Int: 440 ms Sinus rhythm with sinus arrhythmia with 1st degree A-V block Otherwise normal ECG When compared with ECG of 07-SEP-2024 09:01, [place] interval has increased Referred By: Joelle Shepard Electronically Signed By:Ok Garza Dictated By: Ok Garza MD Signed By: Electronically signed by Ok Garza MD 09/07/24 1738 Vent. Rate: 109 BPM Atrial Rate: 109 BPM P-R Int: 190 ms QRS Dur: 094 ms QT Int: 346 ms P-R-T Axes: 743 078 307 degrees QTc Int: 465 ms Sinus tachycardia Otherwise normal ECG When compared with ECG of 07-SEP-2024 11:22, No significant change was found Referred By: Joelle Shepard Electronically Signed By:Ok Garza Dictated By: Ok Garza MD Signed By: Electronically signed by Ok Garza MD 09/07/24 1757 Vent. Rate: 103 BPM Atrial Rate: 103 BPM P-R Int: 206 ms QRS Dur: 092 ms QT Int: 356 ms P-R-T Axes: 062 023 029 degrees QTc Int: 466 ms Sinus tachycardia Otherwise normal ECG When compared with ECG of 07-SEP-2024 13:54, No significant change was found Referred By: Joelle Shepard Electronically Signed By:Ok Garza Dictated By: Ok Garza MD Signed By: Electronically signed by Ok Garza MD 09/07/24 1347 Independent Historian Clinical information obtained from an independent historian. History obtained from or confirmed by: EMS (EMS provided additional history and confirmed the history provided by the patient.) Critical Care Time Critical Care Time Critical Care Time: Yes Total Critical Care Time: 61 Attestation: I spent 61 minutes of Critical Care Time with this patient. This does not include time spent on separately reported billable procedures. Discharge Plan Discharge Clinical Impression: Suicide attempt by multiple drug overdose Patient Disposition: Still a Patient Prescriptions: No Action ondansetron HCl [Zofran] 4 mg tablet 4 mg PO Q8H PRN (Reason: nausea and vomiting) Qty: 10 0RF Print Language: [place]an
[2024-09-07 09:30] LABS: MANUAL DIFF FLAG NO
[2024-09-07 09:56] LABS: Basophils Absolute Auto 0.1 X10*3/uL (0.0-0.2); Basophils Percent Auto 0.6 % (0-2); Eosinophils Absolute Auto 0.1 X10*3/uL (0.0-0.4); Eosinophils Percent Auto 0.6 % (0-4); Hematocrit 38.5 % (42.0-52.0); Hemoglobin 13.5 g/dl (14.0-18.0); Imm Gran Abs Auto 0.02 X10*3/uL (0.00-0.03); Imm Gran Pct Auto 0.2 % (0.0-0.4); Lymphocytes Absolute Auto 1.9 X10*3/uL (1.2-4.9); Lymphocytes Percent Auto 22.8 % (20-40); Mean Corpuscular HGB Conc 35.1 g/dl (31.0-36.0); Mean Corpuscular Hemoglobin 30.4 pg (27.0-33.0); Mean Corpuscular Volume 86.7 fL (80.0-98.0); Mean Platelet Volume 9.2 fL (9.4-12.4); Monocytes Absolute Auto 0.5 X10*3/uL (0.1-1.2); Monocytes Percent Auto 6.4 % (2-11); Neutrophils Absolute Auto 5.6 x10*3/uL (2.0-8.3); Neutrophils Percent Auto 69.4 % (45-73); Platelet Count 232 X10*3/uL (160-400); Red Blood Count 4.44 X10*6/uL (4.60-5.80); Red Cell Distribution Width 11.6 % (11.0-16.0); White Blood Count 8.1 X10*3/uL (4.8-10.8)
[2024-09-07 10:10] LABS: Alanine Aminotransferase 14 U/L (0-40); Albumin Level 4.5 g/dL (3.5-5.0); Alkaline Phosphatase 72 U/L (39-117); Anion Gap 18 (12-20); Aspartate Amino Transferase 31 U/L (5-37); Bilirubin Total 1.4 mg/dL (0.0-1.0); Blood Urea Nitrogen 10 mg/dL (9-16); Calcium 9.3 mg/dL (8.4-10.2); Carbon Dioxide 20 mmol/L (22-29); Chloride 111 mmol/L (96-108); Creatinine Clr Calc Pharmacy 103.1; Estimated Glomerular Filt Rate > 60; Glucose Random 134 mg/dL (60-115); Potassium 3.2 mmol/L (3.3-5.1); Sodium 146 mmol/L (135-145); Total Protein 7.3 g/dL (6.5-8.0)
[2024-09-07] MEDS: ondansetron HCL 4 MG/2 ML VIAL IVPUSH (10:33)
[2024-09-07 10:59] LABS: Acetaminophen LAB < 3 mcg/mL (<30); Salicylate < 5.0 mg/dL (15-30)
--- NOTE | 2024-09-07 11:00 | PC.NURSE ---
Pt comes from home for overdose/SI attempt. Per pt, he took 6-8 100mg of Adderall and 8-9 100mg of Trazodone, intentional overdose. Upon arrival pt tachycardic up to the 140s, a/ox3, respirations even and unlabored, tachypneic 25-30s. Pt diaphoretic, anxious, disorganized, visual hallucinations, pt stated the grinch is over there and it's very reassuring to me . This RN reached out to poison control, per PC, supportive care, IV fluids, serial EKG q2hrs x3 to monitor QTC prolong, replace potassium to at least 4, replace Magnesium if needed, benzos PRN. Pt currently a/ox3, resting quietly in bed, respirations even and unlabored, no increased wob/sob noted, sinus tach on electrotyper, HR 100s-110s. Pt endorsing nausea/vomiting, 2 episodes of vomiting since arrival to ED. 20g IV placed right wrist. 1:1 sitter at bedside for pt safety, pt changed into hospital attire, belongings locked in decon, call leon within reach, all needs met at this time.
[2024-09-07 11:05] LABS: Magnesium 1.9 mg/dL (1.6-2.6)
[2024-09-07] MEDS: Potassium Chloride/H20 10 MEQ/100 ML PIGGYBACK 100 MEQ IV ×6 (11:20→19:23)
[2024-09-07] MEDS: Metoclopramide HCl 10 MG/2 ML VIAL IVPUSH (11:20)
--- NOTE | 2024-09-07 11:28 | PC.NURSE ---
Assumed care of this patient at 1100, patient resting on stretcher intermittently restless, previous RN Karen had called poison control, made provider Joelle aware of their recommendations, K started, EKG completed, to be repeated in 3 hours. Pt. remains of cardiac cath technician w/ lamin Kidd at bedside.
[2024-09-07] MEDS: Magnesium Sulfate/D5W 1 GM/100 ML PIGGYBACK IV (11:37)
--- NOTE | 2024-09-07 11:47 | ECG_ITS ---
Test Reason : QTC CHECK Blood Pressure : / mmHG Vent. Rate : 085 BPM Atrial Rate : 085 BPM P-R Int : 212 ms QRS Dur : 096 ms QT Int : 370 ms P-R-T Axes : 055 047 047 degrees QTc Int : 440 ms Sinus rhythm with sinus arrhythmia with 1st degree A-V block Otherwise normal ECG When compared with ECG of 07-SEP-2024 09:01, SD interval has increased Referred By: Joelle Shepard Electronically Signed By:Ok Garza
--- NOTE | 2024-09-07 13:32 | ECG_ITS ---
Test Reason : OD Blood Pressure : / mmHG Vent. Rate : 109 BPM Atrial Rate : 109 BPM P-R Int : 190 ms QRS Dur : 094 ms QT Int : 346 ms P-R-T Axes : 072 044 038 degrees QTc Int : 465 ms Sinus tachycardia Otherwise normal ECG When compared with ECG of 07-SEP-2024 11:22, No significant change was found Referred By: Joelle Shepard Electronically Signed By:Ok Garza
[2024-09-07 13:51] LABS: Amphetamine Screen Urine POSITIVE (Not Detect); Barbiturates, Urine Not Detected (Not Detect); Benzodiazepines Screen Urine Not Detected (Not Detect); Buprenorphine Scr Not Detected (Not Detect); Cannabinoid Screen Urine POSITIVE (Not Detect); Cocaine Screen Urine Not Detected (Not Detect); Fentanyl, urine Not Detected (Not Detect); Methadone Screen, Urine Not Detected (Not Detect); Opiate Screen Urine Not Detected (Not Detect); Oxycodone Screen Urine Not Detected (Not Detect); Phencyclidine Screen Urine Not Detected (Not Detect)
--- NOTE | 2024-09-07 14:02 | MHC.EDTECH ---
pt visitor is rude and argumentative with staff, grabbing staff from fridge without permission
--- NOTE | 2024-09-07 14:07 | PC.NURSE ---
Spoke to Jonas at poison control, answered his questions about EKG changes and lab work. Recommended to add etoh level when patient is redrawn for lytes after K finishes infusing. Provider Joelle made aware, pic of EKG sent to her.
[2024-09-07] MEDS: LORazepam 2 MG/ML VIAL 1 MG IVPUSH (14:14)
[2024-09-07 14:15] LABS: Appearance Urine Clear; Color Urine Dark Yellow; Glucose Urine UA Negative (Negative); Leukocyte Esterase Urine Negative (Negative); Nitrite Urine Negative (Negative); PH 5.5 (5.0-9.0); Specific Gravity - Urine >= 1.030 (1.005-1.025); UMIC TRIGGER UACC YES; Urine Blood Negative (Negative); Urine Ketones 40 mg/dL (Negative); Urine Protein 30 (1+) mg/dL (Neg-Trace)
[2024-09-07 14:20] LABS: Bacteria Urine None Seen (None Seen); RBC Urine 0-2 /HPF (0-2); Squamous Epithelial Cell Urine 0-2 /HPF (0-2); WBC Urine 0-5 /HPF (0-5)
--- NOTE | 2024-09-07 17:00 | ECG_ITS ---
Test Reason : OD Blood Pressure : / mmHG Vent. Rate : 103 BPM Atrial Rate : 103 BPM P-R Int : 206 ms QRS Dur : 092 ms QT Int : 356 ms P-R-T Axes : 062 023 029 degrees QTc Int : 466 ms Sinus tachycardia Otherwise normal ECG When compared with ECG of 07-SEP-2024 13:54, No significant change was found Referred By: Joelle Shepard Electronically Signed By:Ok Garza
[2024-09-07 17:42] LABS: Alanine Aminotransferase 16 U/L (0-40); Albumin Level 4.3 g/dL (3.5-5.0); Anion Gap 11 (12-20); Aspartate Amino Transferase 31 U/L (5-37); Bilirubin Total 1.2 mg/dL (0.0-1.0); Blood Urea Nitrogen 7 mg/dL (9-16); Calcium 9.1 mg/dL (8.4-10.2); Carbon Dioxide 23 mmol/L (22-29); Chloride 113 mmol/L (96-108); Estimated Glomerular Filt Rate > 60; Glucose Random 90 mg/dL (60-115); Potassium 3.7 mmol/L (3.3-5.1); Sodium 143 mmol/L (135-145); Total Protein 6.9 g/dL (6.5-8.0)
[2024-09-07] MEDS: Potassium Chloride Packet 20 MEQ PACKET 40 MEQ PO (17:51)
[2024-09-07] MEDS: LORazepam 2 MG/ML VIAL IVPUSH (17:51)
[2024-09-07] MEDS: 0.9 % Sodium Chloride 500 ML IV (17:52)
[2024-09-07 18:06] LABS: Alkaline Phosphatase 68 U/L (39-117)
--- NOTE | 2024-09-07 20:14 | PC.NURSE ---
RN to RN phone report given to Briana, all questions answered, patient to be transferred to POD once IV K is completed, about 20 mins. Security to bedside to secure remainder of patient's belongings.
--- NOTE | 2024-09-07 20:17 | MHC.EDTECH ---
Patient belongings in decon per security
--- NOTE | 2024-09-07 20:19 | PC.NURSE ---
Patient's belongings secured by security, brought to decon. Patient is aware he is going to the POD once IV meds are done. Family at bedside also aware.
--- NOTE | 2024-09-07 20:38 | PC.NURSE ---
IV removed, escorted to pod by security
--- NOTE | 2024-09-07 23:01 | PC.NURSE ---
this rn assumed care of pt from main ed @ 2119 pt calm and cooperative paranoid, worried about individual steadiness. pt calmly redirected to bed
[2024-09-08 02:25] VITALS: BP 127/88; PULSE 89; RESP 17; TEMP 36.8; O2SAT 99
[2024-09-08] MEDS: HaloperidoL 5 MG TABLET PO (02:51)
[2024-09-08] MEDS: LORazepam 1 MG TABLET 2 MG PO (02:51)
[2024-09-08] MEDS: diphenhydrAMINE HCL 25 MG CAPSULE 50 MG PO (02:51)
--- NOTE | 2024-09-08 04:02 | PC.NURSE ---
pt increasingly paranoid about steadiness. 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
--- NOTE | 2024-09-08 05:29 | PC.NURSE ---
poison control called this rn stated that since pt is medically cleared poison control checks no longer required
--- NOTE | 2024-09-08 07:15 | PC.NURSE ---
Assumed care of patient at 0645, patient appears to be in no apparent distress this am, sleeping, respirations even and unlabored. Continue plan of care for CARE team omari
--- NOTE | 2024-09-08 10:16 | MHC.CARE ---
Pt meets the criteria for IPLOC at this time secondary to intentionally overdosing on prescription medications. Section 12a in chart. Provider in agreement with disposition.
--- NOTE | 2024-09-08 10:19 | MHC.CARE ---
Emailed financial services to meet with Pt as he is currently uninsured.
--- NOTE | 2024-09-08 13:34 | PHA.MEDREC ---
Pharmacy Consult ? Medication Reconciliation Pharmacy has completed the medication reconciliation.
[2024-09-08] MEDS: Ibuprofen 600 MG TABLET PO (15:49)
[2024-09-08 15:52] VITALS: BP 137/89; PULSE 88; RESP 16; TEMP 36.9; O2SAT 98
[2024-09-08 20:29] VITALS: BP 120/74; PULSE 103; RESP 18; TEMP 36.4; O2SAT 94
[2024-09-09 06:15] VITALS: BP 134/84; PULSE 61; RESP 17; TEMP 36.9; O2SAT 97
--- NOTE | 2024-09-09 07:18 | PC.NURSE ---
Assumed care of patient at 0700. Patient awake, ambulating around unit with steady gait, appears to be anxious, however using music as a calming mechanism. Continue with plan of care for inpatient bed search.
[2024-09-09 08:22] VITALS: BP 133/91; PULSE 94; RESP 20; TEMP 36.9; O2SAT 97
[2024-09-09 14:10] VITALS: BP 137/88; PULSE 78; RESP 14; TEMP 37.2; O2SAT 98
--- NOTE | 2024-09-09 14:15 | HO.PSYADMNOT ---
HPI Date of Service: 09/09/24 Chief Complaint: crisis Sources of Information: patient interviewed, chart reviewed and crisis/core team assessment reviewed HPI Subjective Notes: Vides Warning and Conditional Voluntary Narrative: Patient is a 24-year-old male with history of MDD who was brought in by ambulance [place] [facility] due to intentionally overdosing on Adderall and Trazodone secondary to life stressors. Per crisis report, patient overdosed on 6-8 100mg Adderall and 8-9 100mg trazodone. Patient reports overdosing on old prescription medications after he got into a verbal altercation with his girlfriend.; patient stated that he could not get cannabis that helps him calm down and impulsively overdosed on the medications. denies SI/HI/VH/AH. Per patient's girlfriend, patient has had significant stress recently due to his living situation with his mother. Patient's mother is reported as not supportive and minimizing his mental health concerns. Patient's mother reportedly told him that he should be out of the house in 2 days. During admission assessment, patient presents alert and oriented x3. Calm and cooperative. Patient reports feeling anxious ; patient stated, I was having a bad day. I got into it with my mom about my dog. Her boyfriend had an attitude. My girlfriend was in the hospital because she was bleeding. And when I got home I just said fuck it and did it . Patient reports feeling regretful ; patient stated, It was stupid. I never want to do that again. I think God kept me here for a reason. Now my girlfriend is . Patient denies SI/HI/VH/AH. Patient reports he stopped his psychiatric medications due to no longer having health insurance. He reports he would like referrals to an outpatient prescriber and therapist. Patient signed three-day notice stating that he would like to get back to his girlfriend. Past Psychiatric History: Patient does not have outpatient psychiatric providers; reports he lost services after no longer having health insurance. hx of going to [facility]. First inpatient psychiatric hospitalization. Medical Evaluation Reviewed: Yes [facility] Family History: Mom: Depression Grandmother: Depression Social History: Lives with mother and sister (12y/o). Single. Girlfriend is . Unemployed. High school diploma. Substance History: Patient reports smoking marijuana daily. Denies any other substance use. Utox positive for marijuana and amphetamines. Trauma History: Denies Diagnostics Vital Signs (24Hr): Vital Signs - 24 hr 09/08/24 15:52 09/08/24 20:29 09/09/24 06:15 Temperature 98.5 F 97.5 F 98.5 F Pulse Rate 88 103 H 61 Respiratory Rate 16 18 17 Blood Pressure 137/89 120/74 134/84 Pulse Oximetry 98 94 97 Oxygen Delivery Method Room Air Room Air Room Air 09/09/24 08:22 Temperature 98.5 F Pulse Rate 94 Respiratory Rate 20 Blood Pressure 133/91 H Pulse Oximetry 97 Oxygen Delivery Method Room Air BMI result Body Mass Index 25.8 Labs 09/07/24 09:12 09/07/24 17:08 Labs: Laboratory Results - last 48 hr 09/07/24 09/07/24 13:52 17:08 Sodium 143 Potassium 3.7 Chloride 113 H Carbon Dioxide 23 Anion Gap 11 L BUN 7 L Creatinine 0.98 Estim Creat Clear Calc 120.0 Estimated GFR > 60 Random Glucose 90 Calcium 9.1 Total Bilirubin 1.2 H AST 31 ALT 16 Alkaline Phosphatase 68 Total Protein 6.9 Albumin 4.3 Urine Color Dark Yellow Urine Appearance Clear Urine pH 5.5 Ur Specific [place] >= 1.030 H Urine Protein 30 (1+) H Urine Glucose (UA) Negative Urine Ketones 40 Urine Blood Negative Urine Nitrite Negative Ur Leukocyte Esterase Negative Urine RBC 0-2 Urine WBC 0-5 Ur Squamous Epith Cells 0-2 Urine Bacteria None Seen Hyaline Casts 3-5 Meds/Allergies Meds Home Medications ?Medication ?Instructions ?Recorded ?Confirmed ?Type No Known Home Meds 09/08/24 09/08/24 History Allergies Allergies Allergy/AdvReac Type Severity Reaction Status Date / Time No Known Allergies Allergy Verified 09/07/24 08:50 [No Known Allergies*] Mental Status Exam Mental Status Exam Narrative: Pt is alert and oriented; behavior is cooperative and calm; dressed in hospital attire, malodorous; mood is described as anxious ; eye contact appropriate; Speech is normal rate, volume and not pressured; thought process is organized and goal directed; Thought content is on tx; otherwise pertinent to relevant topics and without any delusional content, paranoid ideations or grandiosity; denies SI/HI/VH/AH. Assessment & Plan Assessment & Plan (1) MDD (major depressive disorder), recurrent episode: Status: Acute Code(s): F33.9 - Major depressive disorder, recurrent, unspecified Plan Patient is a 24-year-old male with history of MDD who was brought in by ambulance [place] [facility] due to intentionally overdosing on Adderall and Trazodone secondary to life stressors. Plan: CV/3 day 15 minute safety checks Obtain collateral Encourage groups Start: Remeron 7.5mg PO bedtime; risks/benefits reviewed Discharge planning Patient educated on: diagnosis and medication risk/benefits Reason for continued inpatient stay Substantial Risk for: med/psych decompensation Statement Statement: I have reviewed the history and physical and performed a pertinent examination on my patient. No changes have occurred unless specified. If the History and Physical was not performed prior to admission, the Hospitalist's service will be consulted for completing the admission physical. Time Spent With Patient Time: Total time managing care of this patient today _60___ minutes.
[2024-09-09 16:13] VITALS: BMI 25.0
[2024-09-09 16:47] LABS: Alanine Aminotransferase 25 U/L (0-40); Alkaline Phosphatase 72 U/L (39-117); Anion Gap 12 (12-20); Aspartate Amino Transferase 35 U/L (5-37); Bilirubin Total 1.1 mg/dL (0.0-1.0); Blood Urea Nitrogen 11 mg/dL (9-16); Calcium 9.8 mg/dL (8.4-10.2); Carbon Dioxide 28 mmol/L (22-29); Chloride 107 mmol/L (96-108); Creatinine Clr Calc Pharmacy 109.1; Estimated Glomerular Filt Rate > 60; Glucose Random 90 mg/dL (60-115); Potassium 3.6 mmol/L (3.3-5.1); Sodium 143 mmol/L (135-145)
--- NOTE | 2024-09-09 18:31 | PC.ADMIT ---
Gaurav is a 24 y/o male that was admitted to [facility] at 1408 from? the [facility] on [facility] for treatment of unspecified depressive d/o. Pt then signed a 3-day up on 09/13/24.? Currently unemployed and lives w/ mother.? Pt was brought to the ED via EMS r/t an intentional overdose on 02/16 100mg of adderall and 6- 100mg of trazadone. Pt told mother, girlfriend and friend who then called 911. Pt reported current stressors of a fight with his girlfriend, Mom asking him to move out in two days and girlfriend newly . Pt reported he could not get marijuana to calm him down so impulsively overdosed on prescribed medication.? Pt was alert and oriented x4. Pt was pleasant and cooperative with admission. Mood is anxious, affect is congruent with mood.? Pt denied AVH.? Pt denied SI or HI at this time, verbalized would be able to come to staff if those thoughts occur.? Thought process was linear and organized.? Pt reported recent weight loss that was intentional.? Pt made good eye contact.? Pt reported using marijuana to help ?de-stress and sleep?. Every day marijuana use and vapes nicotine occasionally, not interested in nicotine replacement.? Pt declined the flu shoot at this time.? Pt has been medication non adherent since January. Pt was on trazadone and adderall.? Tox Screen was positive for THC and amphetamines.? No known medical issues. No physical complaints offered.? Pt was placed on 15 min checks for safety.? Skin check unremarkable.?
[2024-09-09 20:00] VITALS: BP 138/89; PULSE 66; RESP 16; TEMP 36.6; O2SAT 98
[2024-09-09] MEDS: hydrOXYzine HCL 25 MG TABLET PO (20:41)
[2024-09-09] MEDS: Mirtazapine 7.5 MG TABLET PO (20:41)
[2024-09-09] MEDS: traZODone HCL 50 MG TABLET PO (20:41)
[2024-09-10 07:32] VITALS: BP 136/89; PULSE 54; RESP 16; TEMP 36.5; O2SAT 99
[2024-09-10 09:34] LABS: Cholesterol 186 mg/dL (<200); HDL Cholesterol 50 mg/dL (>40); LDL Cholesterol Calculated 124 mg/dL (<100); Triglycerides 62 mg/dL (<150)
--- NOTE | 2024-09-10 12:38 | HO.PSYCHPN ---
Subjective Subjective Date of Service: 09/10/24 Reason For Visit: crisis Interim History: pressing for discharge. arguing he will be in a different environment and so he will not return to his mental state which produced this crisis. MD encourages pt to take this as an opportunity to work on himself. informed he will not be discharged today, aware he will neither be discharged tomorrow. interested in referral to [facility]. per staff, 3-day up 09/13. OD on adderall and trazodone after fight with GF. denies SI now. Mental Status Exam Mental Status Exam Narrative: Pt is alert and oriented; behavior is cooperative and calm; dressed in own clothes, adequate hygiene; eye contact appropriate; Speech is normal rate, volume and not pressured; thought process is organized and goal directed; Thought content is on discharge; otherwise pertinent to relevant topics and without any delusional content, paranoid ideations or grandiosity; no SI/HI/VH/AH expressed. Diagnostics Vital Signs (24Hr): Vital Signs - 24 hr 09/09/24 14:10 09/09/24 20:00 09/10/24 07:32 Temperature 99.0 F 98 F 97.7 F Pulse Rate 78 66 54 Respiratory Rate 14 16 16 Blood Pressure 137/88 138/89 136/89 Pulse Oximetry 98 98 99 Oxygen Delivery Method Room Air Room Air Room Air BMI result Body Mass Index 25.0 Labs 09/07/24 09:12 09/09/24 15:40 Labs: Laboratory Results - last 48 hr 09/09/24 09/10/24 15:40 08:41 Sodium 143 Potassium 3.6 Chloride 107 Carbon Dioxide 28 Anion Gap 12 BUN 11 Creatinine 1.01 Estim Creat Clear Calc 109.1 Estimated GFR > 60 Random Glucose 90 Calcium 9.8 D Total Bilirubin 1.1 H AST 35 ALT 25 Alkaline Phosphatase 72 Total Protein 8.0 Albumin 5.0 Triglycerides 62 Cholesterol 186 LDL Cholesterol, Calc 124 H HDL Cholesterol 50 Medications Medications Current Medications Acetaminophen (Acetaminophen 325 Mg Tablet) 650 mg PO Q6H PRN PRN Reason: Headache/Pain Mild Scale (1-3) Al Hydroxide/Mg Hydroxide (Magnesium Hydrox/Alum Hydrox 30 Ml Oral.Susp) 30 ml PO Q6H PRN PRN Reason: Heartburn/Nausea Hydroxyzine HCl (Hydroxyzine Hcl 25 Mg Tablet) 25 mg PO Q6H PRN PRN Reason: Anxiety Last Admin: 09/09/24 20:41 Dose: 25 mg Magnesium Hydroxide (Milk Of Magnesia 30 Ml Oral.Susp) 30 ml PO DAILY PRN PRN Reason: Constipation Mirtazapine (Mirtazapine 7.5 Mg Tablet) 7.5 mg PO BEDTIME SUDHA Last Admin: 09/09/24 20:41 Dose: 7.5 mg Nicotine (Nicotine 21 Mg Patch.Td24) 21 mg TRANSDERMA DAILY [facility] Last Admin: 09/10/24 09:13 Dose: Not Given Nicotine Polacrilex (Nicotine Polacrilex 2 Mg Gum) 4 mg BUCCAL Q2H PRN PRN Reason: Nicotine Cravings Olanzapine (Olanzapine 5 Mg Tablet) 5 mg PO Q4H PRN PRN Reason: agitation Trazodone HCl (Trazodone Hcl 50 Mg Tablet) 50 mg PO BEDTIME MRX1 PRN PRN Reason: Insomnia Last Admin: 09/09/24 20:41 Dose: 50 mg Allergies Allergies Allergy/AdvReac Type Severity Reaction Status Date / Time No Known Allergies Allergy Verified 09/07/24 08:50 [No Known Allergies*] Assessment & Plan Assessment & Plan (1) MDD (major depressive disorder), recurrent episode: Status: Acute Code(s): F33.9 - Major depressive disorder, recurrent, unspecified Plan Patient is a 24-year-old male with history of MDD who was brought in by ambulance to [facility] due to intentionally overdosing on Adderall and Trazodone secondary to life stressors. Plan: day 15 minute safety checks Obtain collateral Encourage groups Start: Remeron 7.5mg PO bedtime; risks/benefits reviewed Discharge planning 09/10: labile, impulsive, reactive. encouraged to work on coping skills. continue current mgmt. 3-day up 09/13. Patient educated on: therapeutic strategies Reason for continued inpatient stay Substantial Risk for: harm to self Time Spent With Patient Time: Total time managing care of this patient today __35__ minutes.
[2024-09-10] MEDS: OLANZapine 5 MG TABLET PO (19:59)
[2024-09-10 20:00] VITALS: BP 126/81; PULSE 72; RESP 16; TEMP 36.9; O2SAT 98
[2024-09-10] MEDS: hydrOXYzine HCL 25 MG TABLET PO (20:54)
[2024-09-10] MEDS: traZODone HCL 50 MG TABLET PO (20:54)
[2024-09-10] MEDS: Mirtazapine 7.5 MG TABLET PO (21:02)
[2024-09-11 07:20] VITALS: BP 123/87; PULSE 68; RESP 14; TEMP 37.4; O2SAT 99
[2024-09-11] MEDS: OLANZapine 5 MG TABLET PO ×2 (08:49→18:46)
--- NOTE | 2024-09-11 11:46 | P.PNPSI_ITS ---
Subjective Subjective Date of Service: 09/11/24 Reason For Visit: crisis Subjective Notes: 3 Day Healthcare Proxy: No Guardianship: No Medical Problems Affecting Mental Status: No Interim History: 24 yo continues with flat affect and wanting to be discharged- but says he has come to terms with staying 3day out- he is taking olanapine and has been sleeping- he reports he plans to go live with his friend- in [place] and not be at his mom's where he gets riled up - and made the impulsive od- on a few meds- He says he should have called his friend- Reports his friend will bring him to see his gf in [place]- Medication Compliance: Yes Side effects from medications: No Attending Groups: Intermittent Review of Systems Acute medical concerns: No Medical Review of Systems: unchanged Mental Status Exam Mental Status Exam Narrative: lying in bed, cooperative Patient Appearance: Unkempt Patient Orientation: Person, Place, Time and Situation Level of Consciousness: Awake Patient Behavior: Guarded, Cooperative, Passive and Good Eye Contact Mood Description: Flat Affect Description: Blunted Patient Cognition Impaired: No Ability to Follow Directions: Fair Speech Pattern: Clear Hallucinations: None Delusions: Not Present Thought Process: Intact and Goal Oriented Thought Content: positive for Intact Depressive Symptoms: Difficulty Sleeping and Difficulty Concentrating Judgement: Fair Diagnostics Vital Signs (24Hr): Vital Signs - 24 hr 09/10/24 20:00 09/11/24 07:20 Temperature 98.4 F 99.3 F Pulse Rate 72 68 Respiratory Rate 16 14 Blood Pressure 126/81 123/87 Pulse Oximetry 98 99 Oxygen Delivery Method Room Air Room Air BMI result Body Mass Index 25.0 Labs 09/07/24 09:12 09/09/24 15:40 Labs: Laboratory Results - last 48 hr 09/09/24 09/10/24 15:40 08:41 Sodium 143 Potassium 3.6 Chloride 107 Carbon Dioxide 28 Anion Gap 12 BUN 11 Creatinine 1.01 Estim Creat Clear Calc 109.1 Estimated GFR > 60 Random Glucose 90 Calcium 9.8 D Total Bilirubin 1.1 H AST 35 ALT 25 Alkaline Phosphatase 72 Total Protein 8.0 Albumin 5.0 Triglycerides 62 Cholesterol 186 LDL Cholesterol, Calc 124 H HDL Cholesterol 50 Medications Medications Current Medications Acetaminophen (Acetaminophen 325 Mg Tablet) 650 mg PO Q6H PRN PRN Reason: Headache/Pain Mild Scale (1-3) Al Hydroxide/Mg Hydroxide (Magnesium Hydrox/Alum Hydrox 30 Ml Oral.Susp) 30 ml PO Q6H PRN PRN Reason: Heartburn/Nausea Hydroxyzine HCl (Hydroxyzine Hcl 25 Mg Tablet) 25 mg PO Q6H PRN PRN Reason: Anxiety Last Admin: 09/10/24 20:54 Dose: 25 mg Magnesium Hydroxide (Milk Of Magnesia 30 Ml Oral.Susp) 30 ml PO DAILY PRN PRN Reason: Constipation Mirtazapine (Mirtazapine 7.5 Mg Tablet) 7.5 mg PO BEDTIME SUDHA Last Admin: 09/10/24 21:02 Dose: 7.5 mg Nicotine (Nicotine 21 Mg Patch.Td24) 21 mg TRANSDERMA DAILY SUDHA Last Admin: 09/11/24 08:07 Dose: Not Given Nicotine Polacrilex (Nicotine Polacrilex 2 Mg Gum) 4 mg BUCCAL Q2H PRN PRN Reason: Nicotine Cravings Olanzapine (Olanzapine 5 Mg Tablet) 5 mg PO Q4H PRN PRN Reason: agitation Last Admin: 09/11/24 08:49 Dose: 5 mg Trazodone HCl (Trazodone Hcl 50 Mg Tablet) 50 mg PO BEDTIME MRX1 PRN PRN Reason: Insomnia Last Admin: 09/10/24 20:54 Dose: 50 mg Allergies Allergies Allergy/AdvReac Type Severity Reaction Status Date / Time No Known Allergies Allergy Verified 09/07/24 08:50 [No Known Allergies*] Assessment & Plan Assessment & Plan (1) MDD (major depressive disorder), recurrent episode: Status: Acute Code(s): F33.9 - Major depressive disorder, recurrent, unspecified Plan Patient is a 24-year-old male with history of MDD who was [place] in by ambulance [place] [facility] due to intentionally overdosing on Adderall and Trazodone secondary to life stressors. Plan: day 15 minute safety checks Obtain collateral Encourage groups Start: Remeron 7.5mg PO bedtime; risks/benefits reviewed Discharge planning 09/10: labile, impulsive, reactive. encouraged to work on coping skills. continue current mgmt. 3-day up 09/13. 09/11/24 - more subdued, cooperative taking medications and attending mileu- visits with family/friends agreeable to outpatient on dc- thinking CHD Patient educated on: medication risk/benefits and therapeutic strategies Informed Consent: understands Reason for continued inpatient stay Substantial Risk for: harm to self and rapid decompensation Time Spent With Patient Time: Total time managing care of this patient today ____ minutes.
[2024-09-11 20:00] VITALS: BP 122/78; PULSE 73; RESP 17; TEMP 36.9; O2SAT 97
[2024-09-11] MEDS: Mirtazapine 7.5 MG TABLET PO (20:11)
[2024-09-11] MEDS: traZODone HCL 50 MG TABLET PO ×2 (20:11→21:02)
[2024-09-12 07:25] VITALS: BP 139/84; PULSE 71; RESP 16; TEMP 36.6; O2SAT 98
[2024-09-12] MEDS: OLANZapine 5 MG TABLET PO (09:40)
--- NOTE | 2024-09-12 10:39 | P.DS_ITS ---
DS: Providers Provider Date of Service: 09/12/24 Date of admission: 09/09/24 11:45 Primary care physician: Unknown Physician DS: Diagnosis Discharge Diagnosis (1) MDD (major depressive disorder), recurrent episode: Status: Acute DS: Medications Discharge Medications Home Medications: Previous Rx's ?Medication ?Instructions ?Recorded mirtazapine 7.5 mg tablet 7.5 mg PO BEDTIME 30 days #30 tabs 09/12/24 olanzapine 5 mg tablet 5 mg PO BID PRN agitation 30 days 09/12/24 #60 tabs trazodone 50 mg tablet 50 mg PO BEDTIME MRX1 PRN Insomnia 09/12/24 30 days #60 tabs Mental Status Exam Mental Status Exam Narrative: Pt is alert and oriented; behavior is cooperative and calm; dressed in own clothes, adequate hygiene; eye contact appropriate; Speech is normal rate, volume and not pressured; thought process is organized and goal directed; Thought content is on discharge; otherwise pertinent to relevant topics and without any delusional content, paranoid ideations or grandiosity; no SI/HI. Data Data Completed and Pending Completed studies during hospitalization [Text1]: 09/07/24 09/07/24 09/07/24 09:12 13:30 13:52 WBC 8.1 RBC 4.44 L Hgb 13.5 L Hct 38.5 L MCV 86.7 MCH 30.4 MCHC 35.1 RDW 11.6 Plt Count 232 MPV 9.2 L Immature Gran % (Auto) 0.2 Neut % (Auto) 69.4 Lymph % (Auto) 22.8 [place] % (Auto) 6.4 Eos % (Auto) 0.6 Baso % (Auto) 0.6 Lymph # (Auto) 1.9 [place] # (Auto) 0.5 Eos # (Auto) 0.1 Baso # (Auto) 0.1 Abs Immat Gran (auto) 0.02 Absolute Neuts (auto) 5.6 Absolute Nucleated RBC 0.000 Nucleated RBC % (auto) 0.0 Sodium 146 H Potassium 3.2 L Chloride 111 H Carbon Dioxide 20 L Anion Gap 18 BUN 10 Creatinine 1.14 Estim Creat Clear Calc 103.1 Estimated GFR > 60 Random Glucose 134 H Calcium 9.3 Magnesium 1.9 Total Bilirubin 1.4 H AST 31 ALT 14 Alkaline Phosphatase 72 Total Protein 7.3 Albumin 4.5 Triglycerides Cholesterol LDL Cholesterol, Calc HDL Cholesterol Urine Color Dark Yellow Urine Appearance Clear Urine pH 5.5 Ur Specific [place] >= 1.030 H Urine Protein 30 (1+) H Urine Glucose (UA) Negative Urine Ketones 40 Urine Blood Negative Urine Nitrite Negative Ur Leukocyte Esterase Negative Urine RBC 0-2 Urine WBC 0-5 Ur Squamous Epith Cells 0-2 Urine Bacteria None Seen Hyaline Casts 3-5 Salicylates < 5.0 L Urine Opiates Screen Not Detected Ur Buprenorphine Scrn Not Detected Ur Oxycodone Screen Not Detected Urine Methadone Screen Not Detected Urine Fentanyl Screen Not Detected Acetaminophen < 3 Ur Barbiturates Screen Not Detected Ur Phencyclidine Scrn Not Detected Ur Amphetamines Screen POSITIVE H U Benzodiazepines Scrn Not Detected Urine Cocaine Screen Not Detected U Marijuana (THC) Screen POSITIVE H 09/07/24 09/09/24 09/10/24 17:08 15:40 08:41 WBC RBC Hgb Hct MCV MCH MCHC RDW Plt Count MPV Immature Gran % (Auto) Neut % (Auto) Lymph % (Auto) [place] % (Auto) Eos % (Auto) Baso % (Auto) Lymph # (Auto) [place] # (Auto) Eos # (Auto) Baso # (Auto) Abs Immat Gran (auto) Absolute Neuts (auto) Absolute Nucleated RBC Nucleated RBC % (auto) Sodium 143 143 Potassium 3.7 3.6 Chloride 113 H 107 Carbon Dioxide 23 28 Anion Gap 11 L 12 BUN 7 L 11 Creatinine 0.98 1.01 Estim Creat Clear Calc 120.0 109.1 Estimated GFR > 60 > 60 Random Glucose 90 90 Calcium 9.1 9.8 D Magnesium Total Bilirubin 1.2 H 1.1 H AST 31 35 ALT 16 25 Alkaline Phosphatase 68 72 Total Protein 6.9 8.0 Albumin 4.3 5.0 Triglycerides 62 Cholesterol 186 LDL Cholesterol, Calc 124 H HDL Cholesterol 50 Urine Color Urine Appearance Urine pH Ur Specific [place] Urine Protein Urine Glucose (UA) Urine Ketones Urine Blood Urine Nitrite Ur Leukocyte Esterase Urine RBC Urine WBC Ur Squamous Epith Cells Urine Bacteria Hyaline Casts Salicylates Urine Opiates Screen Ur Buprenorphine Scrn Ur Oxycodone Screen Urine Methadone Screen Urine Fentanyl Screen Acetaminophen Ur Barbiturates Screen Ur Phencyclidine Scrn Ur Amphetamines Screen U Benzodiazepines Scrn Urine Cocaine Screen U Marijuana (THC) Screen DS: Summary Time Spent with Patient Time attestation: Total time managing care of this patient today ____ minutes. Discharge Plan Discharge Anticipated Discharge Date/Time: 09/12/24 11:30 Patient Disposition: Home, Self-Care Discharge Diagnosis: Major Depressive Disorder Referrals: Therapy & Psychiatry [Other] - 1 Week (*You have been referred to [facility] for outpatient mental health treatment. If you do not hear from them in the next few days with the appointment information, please reach out to them directly at the number listed above to follow up. ) Physician,Unknown J [Primary Care Provider] - 1 Week Discharge Medications: New trazodone 50 mg Tablet 50 mg PO BEDTIME MRX1 PRN (Reason: Insomnia) 30 Days Qty: 60 0RF olanzapine 5 mg Tablet 5 mg PO BID PRN (Reason: agitation) 30 Days Qty: 60 0RF mirtazapine 7.5 mg Tablet 7.5 mg PO BEDTIME 30 Days Qty: 30 0RF Discharge Orders: Discharge Order (Routine); Ordered 09/12/24 Ordered By: Antonio Zhao Diet: Advance to usual diet Activity on Discharge: As tolerated Stand Alone Forms: Patient Portal Discharge page Print Language: Tongan Care Plan Goals: remain safe and stable in the outpatient treatment setting Health Concerns: none Plan of Treatment: take medications as prescribed, schedule an appointment with [facility] for mental health services Assessment: not at imminent risk of harm to self or others
== END 2024-09-12 11:20 | disposition home or self-care (01) | DRG 751 ==
LOC: HO.ED 20:37 → HO.PADLT16 09-09 12:04
PROVIDERS: Physician Assistant Medical; Admitting Provider Registered Nurse; Emergency Provider Emergency Medicine; Responsible Provider Registered Nurse; Visit Provider Psychiatry & Neurology Psychiatry
DX: F33.9 Major depressive disorder, recurrent, unspecified (principal); F17.210 Nicotine dependence, cigarettes, uncomplicated; Z71.6 Tobacco abuse counseling; T43.622A Poisoning by amphetamines, intentional self-harm, initial encounter; T43.212A Poisoning by selective serotonin and norepinephrine reuptake inhibitors, intentional self-harm, initial encounter; Z79.899 Other long term (current) drug therapy
CPT/HCPCS: 36415; 80053; 80061; 80143; 80179; 80307; 81001; 83735; 85025; 93005; 99285; J2060; J2405; J2765; J3475; J3480

== ENCOUNTER → 2024-09-07 09:01 | Outpatient (BNV) | payer OTHER, SELFPAY | PROVIDERS: Emergency Provider Emergency Medicine; Visit Provider Internal Medicine Cardiovascular Disease | DX: R94.31 Abnormal electrocardiogram [ECG] [EKG] (principal); I45.81 Long QT syndrome; I44.0 Atrioventricular block, first degree; R00.0 Tachycardia, unspecified | CPT/HCPCS: 93010 ==

== ENCOUNTER → 2024-09-09 11:45 | Outpatient (BNV) | payer OTHER, SELFPAY | PROVIDERS: Admitting Provider Registered Nurse; Emergency Provider Emergency Medicine; Responsible Provider Registered Nurse; Visit Provider Registered Nurse | DX: F33.9 Major depressive disorder, recurrent, unspecified (principal) | CPT/HCPCS: 90792 ==